=== PATIENT | male | born 1965 | race Caucasian/White ===

== ENCOUNTER 2020-03-13 00:40 | Outpatient (CLI) | payer BC, SELFPAY ==
[2020-03-13 16:30] LABS: SARS-CoV-2 RNA PCR Negative
== END 2020-03-13 00:41 | disposition home or self-care (01) ==
LOC: ANHCOVIDDT 00:40
PROVIDERS: PCP Family Medicine; Visit Provider Internal Medicine Gastroenterology
DX: Z01.812 Encounter for preprocedural laboratory examination (principal); Z20.828 Contact with and (suspected) exposure to other viral communicable diseases
CPT/HCPCS: 87635; C9803; U0003

== ENCOUNTER 2020-03-15 00:11 | Day surgery (SDC) | payer BC, SELFPAY ==
[2020-03-06 14:23] VITALS: BMI 38.7
--- NOTE | 2020-03-15 07:35 | P.PNAN_ITS ---
Anes - Initial Pre Proc Eval Procedure: Operation Date: 03/15/20 09:00 Proposed Procedures p Screening Colonoscopy - Kamari Villalpando MD Date/Time: 03/15/20 07:35 Surgeon: Kamari Villalpando MD Pre Op Diagnosis: neoplasm screening, hx colon polyps Patient Data Age: 54 Gender: M Height: 1.68 m Weight: 109 kg Allergies Allergy/AdvReac Type Severity Reaction Status Date / Time morphine Allergy Severe Anaphylaxis Verified 03/15/20 07:45 ketoconazole Allergy Intermediate Skin Verified 03/15/20 07:45 Reaction Home Medications Medication Instructions Recorded Confirmed Type adalimumab [Humira] 40 mg SUBCUT ONCE 04/05/19 03/15/20 History baclofen 5 mg PO BID 04/05/19 03/15/20 History metoprolol succinate 50 mg PO DAILY 04/05/19 03/15/20 History simvastatin 40 mg tablet 40 mg PO DAILY #90 tablet 05/27/19 03/15/20 Rx omeprazole 40 mg capsule,delayed 40 mg PO DAILY #90 cap 06/17/19 03/15/20 Rx release atomoxetine 100 mg capsule 100 mg PO DAILY #90 cap 09/01/19 03/15/20 Rx sildenafil 50 mg tablet 50 mg PO DAILY PRN #30 tablet 01/18/20 03/15/20 Rx duloxetine 60 mg capsule,delayed 60 mg PO DAILY #90 cap 02/17/20 03/15/20 Rx release diazepam 5 mg PO BID PRN 03/06/20 03/15/20 History ibuprofen 800 mg PO TID PRN 03/06/20 03/15/20 History icosapent ethyl [Vascepa] 2 g PO BID 03/06/20 03/15/20 History tramadol 50 mg PO TID PRN 03/06/20 03/15/20 History Patient hx anesthesia problems: none Family hx anesthesia problems: none PMFSH Past Medical History Medical History (Updated 03/15/20 @ 07:37 by Silver Bullard MD) ADHD Anxiety state, unspecified CAD (coronary artery disease) Depression Essential (primary) hypertension Mixed hyperlipidemia Obesity, unspecified Obstructive sleep apnea (adult) (pediatric) Spinal stenosis, thoracic region Family History Family History Father Diabetes mellitus Hypertension Family history of elevated blood lipids Family history of cardiovascular disease Grandparent Diabetes mellitus Family history of cardiovascular disease Acute myocardial infarction Mother Hypertension Family history of elevated blood lipids Family history of cardiovascular disease Family history of cardiac disorder Social History Social History Smoking status: Never smoker Alcohol intake: never Substance use: never Substance use type: does not use Spiritual care concerns: No Anes - Eval Final PreProcedure Day of Procedure 03/15/20 07:35 Patient weight: obese Heart: regular rate and rhythm Lungs: clear to auscultation and normal air movement Airway: Mallampati scale class II Neurological: alert and oriented Last oral intake: >/= 8 hours ASA classification: III Emergent: no Anesthetic plan: proceed Anesthesia type and monitoring: general GIVS Informed Consent: The patient's anesthetic plan and its attendant risks and benefits were discussed with the patient/family/POA. Questions were solicited and answers provided to the satisfaction of the patient/family/POA.
[2020-03-15 07:47] VITALS: BP 146/76; PULSE 87; RESP 20; TEMP 36.1; O2SAT 100; BMI 36.9
--- NOTE | 2020-03-15 07:59 | WPDGICN ---
Assessment and Plan Assessment and plan (1) History of colon polyps: Code(s): Z86.010 - Personal history of colonic polyps Status: Acute Assessment and Plan: Patient was found to have a polyp in the colon 5 years ago. Patient presents today for follow-up examination. Follow-up will determine pending results of follow-up exam (2) Obesity, unspecified: Code(s): E66.9 - Obesity, unspecified Status: Acute GI Consult Note Consult date/time: 03/15/20 07:59 HPI: Danilo Benoit is a 54 year old male Seen in evaluation at the request of Dr. Heath Irwin. patient has a history of a colon polyp identified 2014 at the time of screening exam. Patient states he currently feels normal. Weight appetite bowel movements are normal. He denies abdominal pain. Family history noncontributory. He presents today for follow-up colonoscopy. Review of Systems Review of Systems: All systems reviewed & are unremarkable except as noted in HPI and below PMFSH Past Medical History Medical History (Updated 03/15/20 @ 08:01 by Kamari Villalpando MD) ADHD Anxiety state, unspecified CAD (coronary artery disease) Depression Essential (primary) hypertension Mixed hyperlipidemia Obesity, unspecified Obstructive sleep apnea (adult) (pediatric) Spinal stenosis, thoracic region Family History Family History Father Diabetes mellitus Hypertension Family history of elevated blood lipids Family history of cardiovascular disease Grandparent Diabetes mellitus Family history of cardiovascular disease Acute myocardial infarction Mother Hypertension Family history of elevated blood lipids Family history of cardiovascular disease Family history of cardiac disorder Social History Social History Smoking status: Never smoker Alcohol intake: never Substance use: never Substance use type: does not use Spiritual care concerns: No Meds Home Medications and Allergies Home Medications Medication Instructions Recorded Confirmed Type adalimumab [Humira] 40 mg SUBCUT ONCE 04/05/19 03/15/20 History baclofen 5 mg PO BID 04/05/19 03/15/20 History metoprolol succinate 50 mg PO DAILY 04/05/19 03/15/20 History simvastatin 40 mg tablet 40 mg PO DAILY #90 tablet 05/27/19 03/15/20 Rx omeprazole 40 mg capsule,delayed 40 mg PO DAILY #90 cap 06/17/19 03/15/20 Rx release atomoxetine 100 mg capsule 100 mg PO DAILY #90 cap 09/01/19 03/15/20 Rx sildenafil 50 mg tablet 50 mg PO DAILY PRN #30 tablet 01/18/20 03/15/20 Rx duloxetine 60 mg capsule,delayed 60 mg PO DAILY #90 cap 02/17/20 03/15/20 Rx release diazepam 5 mg PO BID PRN 03/06/20 03/15/20 History ibuprofen 800 mg PO TID PRN 03/06/20 03/15/20 History icosapent ethyl [Vascepa] 2 g PO BID 03/06/20 03/15/20 History tramadol 50 mg PO TID PRN 03/06/20 03/15/20 History Allergies Allergy/AdvReac Type Severity Reaction Status Date / Time morphine Allergy Severe Anaphylaxis Verified 03/15/20 07:45 ketoconazole Allergy Intermediate Skin Verified 03/15/20 07:45 Reaction Vital Signs Vital Signs - 24 hr 03/15/20 07:47 Temperature 97 F L Pulse Rate 87 Respiratory Rate 20 Blood Pressure 146/76 H Pulse Oximetry 100 Exam Narrative: Exam Narrative: Physical exam reveals patient's vital signs to be stable. HEENT exam unremarkable. Patient is alert. Vital signs stable. HEENT exam unremarkable. Lungs are clear. Heart without murmur. abdomen is obese soft nontender with no organomegaly. Digital external rectal exam is normal.
[2020-03-15] MEDS: LACTATED RINGERS 1,000 ML 150 ML IV CONT (08:09)
[2020-03-15 08:47] VITALS: BP 122/60; PULSE 86; RESP 18; O2SAT 100
[2020-03-15 08:57] VITALS: BP 128/69; PULSE 81; RESP 18; O2SAT 100
[2020-03-15 09:07] VITALS: BP 130/78; PULSE 81; RESP 18; O2SAT 100
== END 2020-03-15 09:25 | disposition home or self-care (01) ==
PROVIDERS: PCP Family Medicine; Visit Provider Internal Medicine Gastroenterology
PROC: 0DJD8ZZ Inspection of Lower Intestinal Tract, Via Natural or Artificial Opening Endoscopic (ICD-10-PCS; CPT 45378; principal; 2020-03-15 09:00)
DX: Z12.11 Encounter for screening for malignant neoplasm of colon (principal); D12.3 Benign neoplasm of transverse colon; I10 Essential (primary) hypertension; E78.2 Mixed hyperlipidemia; I25.10 Atherosclerotic heart disease of native coronary artery without angina pectoris; G47.33 Obstructive sleep apnea (adult) (pediatric); F41.8 Other specified anxiety disorders; F90.9 Attention-deficit hyperactivity disorder, unspecified type; E66.9 Obesity, unspecified; Z68.37 Body mass index [BMI] 37.0-37.9, adult
CPT/HCPCS: 45385; 88305; J2001; J2704; J7120

== ENCOUNTER 2021-04-18 13:30 | Emergency (ER) | payer BC, SELFPAY ==
--- NOTE | 2021-04-18 13:53 | ED.WOUNDLAC ---
HPI - Wound/Laceration General Chief Complaint: Wound/Laceration Stated Complaint: laceration lt wrist Time Seen by Provider: 04/18/21 13:53 Source: patient and RN notes reviewed History of Present Illness HPI narrative: Patient is a 55-year-old male who presents the urgent care with complaints of a laceration to the left wrist. Patient states that he was fixing an area on a metal shed and sliced open the left wrist. Patient states it happened approximately 20 minutes prior to arrival. Patient is up-to-date on his tetanus shot. No other acute complaints or injuries. No acute distress noted. Patient aware of the plan of care. Some parts of this dictation were generated by voice recognition software and may contain typographical and/or grammatical inaccuracies. Related Data Home Medications Medication Instructions Recorded Confirmed adalimumab [Humira] 40 mg SUBCUT ONCE 04/05/19 01/01/21 baclofen 5 mg PO BID 04/05/19 01/01/21 metoprolol succinate 50 mg PO DAILY 04/05/19 01/01/21 ibuprofen 800 mg PO TID PRN 03/06/20 01/01/21 icosapent ethyl [Vascepa] 2 g PO BID 03/06/20 01/01/21 rivaroxaban 20 mg tablet 20 mg PO DAILY 06/26/20 01/01/21 Allergies Allergy/AdvReac Type Severity Reaction Status Date / Time morphine Allergy Severe Anaphylaxis Verified 04/18/21 14:18 ketoconazole Allergy Intermediate Skin Verified 04/18/21 14:18 Reaction Review of Systems Review of Systems: CONSTITUTIONAL: Denies fever, chills, or sweats. EYES: Denies visual changes, redness, or discharge. ENT: Denies rhinorrhea, congestion, sore throat, or otalgia. CARDIOVASCULAR: Denies chest pain, palpitations, or edema. RESPIRATORY: Denies cough or dyspnea. GASTROINTESTINAL: Denies abdominal pain, nausea, vomiting, or diarrhea. GENITOURINARY: Denies dysuria or hematuria. SKIN: Reports of a laceration to the left breast MUSCULOSKELETAL: Denies back pain, joint pain, or myalgia. NEUROLOGIC: Denies headache, numbness, or weakness. All other systems reviewed are negative, except as documented in HPI. [facility] Past Medical History Medical History (Updated 04/18/21 @ 14:27 by JUAN F Box) ADHD Anxiety state, unspecified CAD (coronary artery disease) Depression Essential (primary) hypertension Mixed hyperlipidemia Obesity, unspecified Spinal stenosis, thoracic region Family History Family History Father Diabetes mellitus Hypertension Family history of elevated blood lipids Family history of cardiovascular disease Grandparent Diabetes mellitus Family history of cardiovascular disease Acute myocardial infarction Mother Hypertension Family history of elevated blood lipids Family history of cardiovascular disease Family history of cardiac disorder Social History Social History Alcohol intake: never Substance use: never Substance use type: does not use Spiritual care concerns: No Comments At the time of my signature, I reviewed and agree with the nursing past medical, surgical, social, and family history. There is no relevant family history pertinent to the patient complaint. Exam Narrative: GENERAL: This is a well-nourished, well-developed patient, in no apparent distress. HEAD: normocephalic, atraumatic. EYES: PERRL. Sclera clear/white. Vision is grossly intact. EARS: External ears normal NOSE: External nose normal with no obvious nasal discharge, nares without redness, no rhinorrhea. THROAT: Mucous membranes moist NECK: Neck supple SKIN: 1.5 cm linear laceration to the palmar aspect of the left wrist. Warm, intact with no suspicious lesions or rash, good texture and turgor. NEURO: awake, alert, and oriented to person, place and time. There were no obvious focal neurologic abnormalities. EXTREMITIES: Range of motion to left upper extremity within normal limits with positive strong left radial pulse a
[2021-04-18 13:56] VITALS: BP 141/78; PULSE 91; RESP 19; TEMP 36.8; O2SAT 99
== END 2021-04-18 14:33 | disposition home or self-care (01) ==
PROVIDERS: Emergency Provider Nurse Practitioner Family; PCP Family Medicine
DX: S61.512A Laceration without foreign body of left wrist, initial encounter (principal); I25.10 Atherosclerotic heart disease of native coronary artery without angina pectoris; I10 Essential (primary) hypertension; E78.2 Mixed hyperlipidemia; W45.8XXA Other foreign body or object entering through skin, initial encounter
CPT/HCPCS: 12001; 99212; G0463

== ENCOUNTER → 2022-07-04 08:10 | Outpatient (CLI) | payer BC, SELFPAY ==
--- NOTE | ~2022-07-04 | US_ITS ---
EXAMINATION: US abdomen complete DATE: 07/04/2022 08:31 INDICATION: Elevated liver function tests TECHNIQUE: Multiple grayscale and Doppler ultrasound images of the abdomen were obtained. COMPARISON: None available FINDINGS: Bowel gas obscures visualization of the pancreas. The visualized portions of the pancreas a re unremarkable. The liver demonstrates increased echogenicity, heterogenous echotexture, and decreas ed through transmission. No surface nodularity. Normal hepatopetal flow in the main portal vein. The gallbladder is normal with no abnormal wall thickening, pericholecystic fluid or stones. The normal c ommon bile duct measures 3 mm. There was no sonographic Paige sign. The visualized portions of the a lorenzo and inferior vena cava are normal. The spleen is normal in appearance and measures 7.8 cm. The right kidney measures 12.3 x 5.3 x 5.3 cm . The left kidney measures 11.6 x 5.5 x 5.7 cm. The kidneys demonstrate normal parenchymal echogenici ty. There is no hydronephrosis. IMPRESSION: 1. Diffuse hepatic steatosis. Reviewed, dictated and finalized at location L. T WORKER
== END ==
PROVIDERS: PCP Family Medicine; Visit Provider Physician Assistant
DX: R74.8 Abnormal levels of other serum enzymes (principal); K76.0 Fatty (change of) liver, not elsewhere classified
CPT/HCPCS: 76700

== ENCOUNTER → 2023-02-21 09:45 | Outpatient (CLI) | payer BC, SELFPAY ==
--- NOTE | ~2023-02-21 | MR_ITS ---
MRI of the brain Clinical History: Amnesia Technique: Axial and sagittal T1-weighted images were acquired. These were followed by axial T2-weigh tamar, diffusion weighted, gradient, and FLAIR images. COMPARISON: 04/22/2018 Findings: No definite signal abnormality seen in the brain parenchyma, though FLAIR images are degrad ed by motion artifact in particular. No evidence for acute infarct, internal hemorrhage, or mass lesi on. Ventricles and subarachnoid spaces are unremarkable. Orbits are unremarkable. Paranasal sinuses and m astoid air cells are clear. Major intracranial flow voids appear intact. Sagittal midline structures are intact. IMPRESSION: No significant abnormality seen. FLAIR images are significantly degraded by motion artifact. Reviewed, dictated and finalized at location M. IMPRESSION: No significant abnormality seen. FLAIR images are significantly degraded by mot ion artifact.
== END ==
PROVIDERS: PCP Family Medicine; Visit Provider Family Medicine
DX: R41.3 Other amnesia (principal)
CPT/HCPCS: 70551

== ENCOUNTER → 2023-04-23 10:16 | Outpatient (CLI) | payer BC, SELFPAY ==
--- NOTE | ~2023-04-23 | XR_ITS ---
EXAMINATION: XR lumbar spine 2-3V, XR sacroiliac joints min 3V DATE: 04/23/2023 10:48 INDICATION: Ankylosing spondylitis of multiple sites TECHNIQUE: 1. Anteroposterior and lateral views of the lumbar spine, and cone-down lateral view of the lumbosacr al junction were obtained. 2. AP and left and right oblique views of the bilateral sacroiliac joints were obtained. COMPARISON: Lumbar spine MR dated 06/20/2017 FINDINGS: 13 degrees thoracolumbar dextrocurvature. 3 mm retrolisthesis L2 on L3. Chronic T12 compression fract ure with 20% anterior vertebral body height loss. Lumbar vertebral body heights are normal. Mild disc height loss at L2-L3. There appear to be bridging syndesmophytes at T8-T9 through L1-L2. There is al so osseous fusion between the spinous processes from T8 through L2. Lumbar facet osteoarthritis mild at the upper lumbar spine progression of moderate severity at L4-L5 and L5-S1. There is moderate oste oarthritis at the bilateral sacroiliac joints without definitive ankylosis. No subarticular erosions to suggest an inflammatory sacroiliitis. IMPRESSION: 1. Mild lumbar spondylosis with bridging syndesmophytes and ankylosis across the spinous processes ex tending from T8 through L2 consistent with reported history of ankylosing spondylitis. 2. Moderate bilateral sacroiliac osteoarthritis without definitive ankylosis. Reviewed, dictated and finalized at location A. CULTURE RESEARCH DIRECTOR IMPRESSION: 1. Mild lumbar spondylosis with bridging syndesmophytes and ankylosis across th e spinous processes extending from T8 through L2 consistent with reported histo ry of ankylosing spondylitis. 2. Moderate bilateral sacroiliac osteoarthritis without definitive ankylosis.
--- NOTE | ~2023-04-23 | XR_ITS ---
[id number] 04/23/2023 10:48 Indication: Ankylosing spondylitis Procedure: 4 view cervical spine Comparison: No prior studies for comparison. Findings: There is prominent ventral osteophytes at C2-3 with ankylosis anteriorly. Vertebral body he ights are maintained. There is disc narrowing at C5-6 and C6-7. There is moderate multilevel facet hy pertrophy. Odontoid process is normal. Lateral masses normally aligned. No acute fracture or traumati c malalignment. Impression: 1: Moderate cervical spondylosis with ankylosis anteriorly at C2-3 secondary to bridging osteophyte. Reviewed, dictated and finalized at location B. CTOR TOXICOLOGY Impression: 1: Moderate cervical spondylosis with ankylosis anteriorly at C2-3 secondary to bridging osteophyte.
== END ==
PROVIDERS: PCP Family Medicine; Visit Provider Physician Assistant Medical
DX: M45.0 Ankylosing spondylitis of multiple sites in spine (principal); Z79.899 Other long term (current) drug therapy; M47.896 Other spondylosis, lumbar region; M53.3 Sacrococcygeal disorders, not elsewhere classified; M47.892 Other spondylosis, cervical region
CPT/HCPCS: 72040; 72100; 72202

== ENCOUNTER → 2023-04-23 10:19 | Outpatient (CLI) | payer BC, SELFPAY ==
--- NOTE | ~2023-04-23 | MR_ITS ---
MRI of the left shoulder Technique: Axial proton-density fat-sat images, coronal proton density fat-sat and T2 fat-sat images, and sagittal T1-weighted and T2 fat-sat images were acquired. Clinical History: Pain Findings: There is moderate to advanced AC joint degenerative change. Coracoclavicular, coracoacromia l, coracohumeral ligaments are intact. There is moderate supraspinatus and infraspinatus tendinosis. There are probable low-grade interstiti al tear of the infraspinatus tendon near the myotendinous junction. No high-grade partial or full-thi ckness tear seen. Subscapularis tendon is intact, with moderate tendinosis. Tendon of long head of th e biceps demonstrates interstitial reticular tendinosis. No labral tear evident. Inferior glenohumeral ligament is intact. There is minimal glenohumeral joint effusion. There is mild humeral head chondromalacia. There is no fluid distention of the subacromial/subdeltoid bursa. No mu scle atrophy or edema. Impression: Diffuse rotator cuff tendinosis, with probable low-grade interstitial tear of the infraspinatus tendo n, as detailed above. No high-grade partial or full-thickness rotator cuff tear seen. Moderate to advanced AC joint degenerative change. Reviewed, dictated and finalized at location . N POUNCER Impression: Diffuse rotator cuff tendinosis, with probable low-grade interstitial tear of t he infraspinatus tendon, as detailed above. No high-grade partial or full-thick ness rotator cuff tear seen. Moderate to advanced AC joint degenerative change.
== END ==
PROVIDERS: PCP Family Medicine; Visit Provider Orthopaedic Surgery
DX: M19.012 Primary osteoarthritis, left shoulder (principal)
CPT/HCPCS: 73221

== ENCOUNTER 2024-10-25 10:49 | Outpatient (CLI) | payer BC, SELFPAY ==
--- NOTE | ~2024-10-25 | XR_ITS ---
AP and oblique views of the SI joints CLINICAL HISTORY: Ankle is an spondylitis FINDINGS: Bilateral SI joints and hip joints are intact. No fracture or dislocation. Soft tissues are unremarkable. IMPRESSION: Unremarkable SI joints. Reviewed, dictated and finalized at location M. IMPRESSION: Unremarkable SI joints.
--- NOTE | ~2024-10-25 | XR_ITS ---
Lumbosacral Spine: AP and lateral views Clinical History: Ankylosing spondylitis COMPARISON: 04/23/2023 Findings: The normal lordotic curve is maintained. No acute fracture seen. Osseous alignment is uncha nged. Stable grade 1 retrolisthesis of L2 over L3. Stable mild degenerative changes. Stable extensive facet arthropathy. The sacroiliac joints are normally outlined. Impression: Stable degenerative spondylosis. Overall, no significant change from prior exam. Reviewed, dictated and finalized at location . Impression: Stable degenerative spondylosis. Overall, no significant change from prior exam .
--- NOTE | ~2024-10-25 | XR_ITS ---
Cervical Spine: AP, lateral, open-mouth views Clinical History: Closing spondylitis COMPARISON: 04/23/2023 Findings: The normal lordotic curve is maintained. No fracture or subluxation. There is moderate dege nerative disc changes C6-C7. Stable large bridging osteophyte anteriorly from C2 to C3. Stable facet arthropathy in the cervical spine. Pre-vertebral soft tissues are unremarkable. Impression: Stable degenerative spondylosis as compared to prior exam. Reviewed, dictated and finalized at location . Impression: Stable degenerative spondylosis as compared to prior exam.
== END 2024-10-25 10:50 | disposition home or self-care (01) ==
PROVIDERS: PCP Family Medicine; Visit Provider Physician Assistant Medical
DX: M45.0 Ankylosing spondylitis of multiple sites in spine (principal); M43.02 Spondylolysis, cervical region; M43.06 Spondylolysis, lumbar region
CPT/HCPCS: 72040; 72100; 72202